=== PATIENT | female | born 2000 | race Caucasian/White ===

== ENCOUNTER 2024-06-19 02:58 | Emergency (ER) | payer BC, SELFPAY ==
--- NOTE | ~2024-06-19 | CT_ITS ---
CT of the Abdomen and Pelvis: Indication: Abdominal pain Technique: 2.5 mm axial scans were obtained through the abdomen and pelvis following intravenous adm inistration of 100 cc of Omnipaque 350. Dose reduction technique was used on this scan by utilizing a utomated exposure control and iterative reconstruction technique. The dose-length product (DLP) was 4 30.71 mGy-cm. Findings: Scans through the lung bases are unremarkable. The liver, spleen, pancreas, gallbladder, adrenals and left kidney are within normal limits. There is a 4 mm stone in the very proximal right ureter with mild right hydronephrosis. No evidence of aortic aneurysm. No lymphadenopathy. No bowel obstruction or bowel wall thickening. There is no evidence to suggest acute appendicitis. Images through the pelvis were performed. Urinary bladder unremarkable. 2 cm ovarian cyst present. No other pelvic mass seen. No ascites. Impression: 4 mm proximal right ureteral stone with mild right hydronephrosis. Reviewed, dictated and finalized at [facility]. [employer] Impression: 4 mm proximal right ureteral stone with mild right hydronephrosis.
[2024-06-19 03:04] VITALS: BP 140/90; PULSE 88; RESP 14; TEMP 36.6; O2SAT 100
[2024-06-19 03:17] LABS: Basophils Absolute Auto 0.1 K/mm3 (0.0-0.1); Basophils Percent Auto 1.8 % (0.2-1.2); Eosinophils Absolute Auto 0.2 K/mm3 (0-0.3); Eosinophils Percent Auto 3.4 % (0-4.4); Hematocrit 40.5 % (37.0-47.0); Hemoglobin 13.9 g/dL (12.0-15.0); Immature Granulocyte Absolute 0.01 K/mm3 (0.00-0.031); Immature Granulocyte Percent A 0.2 % (0-0.5); Lymphocytes Absolute Auto 2.77 K/mm3 (0.9-3.2); Lymphocytes Percent Auto 48.9 % (18.3-44.2); Mean Corpuscular HGB Conc 34.3 g/dl (32-36); Mean Corpuscular Hemoglobin 31.1 pg (26-34); Mean Corpuscular Volume 90.6 fl (80-100); Mean Platelet Volume 9.4 fl (7.4-10.4); Monocytes Absolute Auto 0.6 K/mm3 (0.1-0.6); Monocytes Percent Auto 10.6 % (2.6-8.5); Neutrophils Percent Auto 35.1 % (45.5-73.1); Platelet Count Result 250 k/mm3 (150-375); Red Blood Count 4.47 M/mm3 (4.2-5.4); Red Cell Distribution Width 12.5 % (11.5-14.5); White Blood Count 5.7 K/mm3 (4.5-10.0)
[2024-06-19 03:20] LABS: BEDSIDEPREGUCG Negative (Negative)
[2024-06-19 03:28] LABS: Alanine Aminotransferase 18 U/L (6-35); Albumin Level 4.5 g/dL (3.5-5.1); Alkaline Phosphatase 80 U/L (38-126); Anion Gap 8 mmol/L (4-12); Aspartate Amino Transferase 23 U/L (14-36); Bilirubin,Total 0.6 mg/dL (0.2-1.3); Blood Urea Nitrogen 8 mg/dL (7-17); Calcium 8.9 mg/dL (8.4-10.2); Carbon Dioxide 27 mmol/L (22-30); Chloride 103 mmol/L (98-107); Estimated CRCL calculation 78 ml/min; Estimated Glomerular Filt Rate > 60; Glucose 113 mg/dL (65-110); Lipase 108 U/L (23-300); Potassium 3.5 mmol/L (3.4-5.0); Sodium 138 mmol/L (137-145)
[2024-06-19 03:33] LABS: Bacteria Urine Rare /hpf; Non Pathogenic Casts 0-2; RBC Urine >100 /hpf (0-2); Squamous Epithelial Cell Urine Moderate /hpf (Few)
[2024-06-19 03:34] LABS: Add Urine Microscopic? YES; Appearance Urine Turbid (Clear); Bilirubin Urine Negative (Negative); Blood Urine 3+ (Negative); Color Urine Orange (Yellow); Glucose Urine UA Negative (Negative); Ketones Urine Negative (Negative); Leukocyte Esterase Ur 1+ LEU/UL (Negative); Nitrate Urine Negative (Negative); Protein Urine 2+ mg/dL (Negative); Specific Grav Ur 1.022 (1.001-1.035); pH Urine 5.5 (5.0-9.0)
--- NOTE | 2024-06-19 03:50 | ED.ABDPAIN ---
HPI - Abdominal Pain General Chief Complaint: Abdominal Pain Stated Complaint: right abd pain Time Seen by Provider: 06/19/24 03:23 History of Present Illness HPI narrative: 24-year-old female with no pertinent past medical history aside from celiac disease. She presents to the emergency room with sudden-onset pain right lower quadrant woke her from sleep 3 hours prior. Describes as a sharp stabbing pain that radiates to the back with intermittent nausea. Denies any diarrhea, constipation, vomiting. No history of similar events in the past. Only surgical history is a biopsy that diagnosed her celiac disease but no other surgeries. Was previously in her normal state of health. Denies any chest pain, shortness of breath, fever, chills, upper abdominal pain, weakness or fatigue. She is presently on her menstrual cycle but does not usually get pain like this. No history of kidney stones. Related Data Allergies Allergy/AdvReac Type Severity Reaction Status Date / Time No Known Allergies Allergy Verified 06/19/24 02:59 Review of Systems Review of Systems: As reviewed above in HPI Exam Narrative: GENERAL: Anxious in pain but not any acute distress, answering all my questions appropriate HEAD: [Normocephalic, atraumatic.] EYES: [PERRLA and EOMI.] ENT: Nares clear, no rhinorrhea or epistaxis. Mucous membranes moist. NECK: Supple. CHEST: [Clear to auscultation. No respiratory distress.] HEART: [Regular rate and rhythm]. No murmur heard. [Normal peripheral pulses.] ABDOMEN: [Soft, nondistended], tender to palpation the right lower quadrant focally, negative Herrera sign, positive psoas sign, [No rigidity or guarding] EXTREMITIES: Normal range of motion. [No edema.] SKIN: Warm, dry, no rash. NEURO: [No focal deficits]. Alert and oriented [x3.] PSYCH: [Normal mood and affect.] Course Vital Signs Vital signs: Vital Signs Temperature 36.6 C 06/19/24 03:04 Pulse Rate 88 06/19/24 03:04 Respiratory Rate 14 06/19/24 03:04 Blood Pressure 140/90 06/19/24 03:04 Pulse Oximetry 100 06/19/24 03:04 Oxygen Delivery Room Air 06/19/24 03:04 Temperature 36.6 C 06/19/24 03:04 Pulse Rate 84 06/19/24 05:21 Respiratory Rate 12 06/19/24 05:21 Blood Pressure 115/81 06/19/24 05:21 Pulse Oximetry 97 06/19/24 05:21 Oxygen Delivery Room Air 06/19/24 03:04 MDM - Abdominal Pain MDM Narrative Medical decision making narrative: 24-year-old female presenting with right lower quadrant pain that woke her from sleep. Radiates the back. She is presently on her menstrual cycle but denies any abnormal bleeding or vaginal discharge with her normal cycle. She is afebrile, normal vital signs of any tachycardia, blood pressure concerns or hypoxia. Examination does show a tender right lower quadrant with positive psoas sign. Negative Herrera sign or upper abdominal quadrant tenderness. Differential is broad but does include appendicitis, kidney stone, most likely gastroenteritis or inflammatory bowel. She denies any chance of her test is negative. Ovarian pathology such as a cyst or torsion less likely but also in the differential. CBC, CMP, lipase, urinalysis and test ordered. A CT scan with IV contrast was obtained. She was given Dilaudid, Zofran and re-evaluated for symptom control. Patient was re-evaluated in given additional pain medications with symptomatic improvement thereafter. CT scan shows a 4 mm kidney stone with mild hydronephrosis on the right side. No leukocytosis or anemia. No creatinine dysfunction. No evidence of urinary tract infection. I discussed this with the patient and given her symptomatic improvement and control pain and the size of the stone I believe he will be able to be passed on its own and she is stable for an outpatient evaluation by Urology and discharge home. Family member at bedside was agreeable to this plan of care and patient was also agreeable as her pain was much better. We did give her dose of Flomax and Toradol as well I will prescribe for additional medications for pain control and Flomax. She will be provided urology follow-up and patient's questions were answered. She was stable for discharge home at this time with return precautions. Medical Records Attestation: I reviewed the patient's medical records. Lab Data Attestation: I reviewed the patient's lab results. 06/19/24 03:11 06/19/24 03:11 Labs: Lab Results 06/19/24 06/19/24 06/19/24 Range/Units 03:11 03:17 03:18 WBC 5.7 (4.5-10.0) K/mm3 RBC 4.47 (4.2-5.4) M/mm3 Hgb 13.9 (12.0-15.0) g/dL Hct 40.5 (37.0-47.0) % MCV 90.6 (80-100) fl MCH 31.1 (26-34) pg MCHC 34.3 (32-36) g/dl RDW 12.5 (11.5-14.5) % Plt Count 250 (150-375) k/mm3 MPV 9.4 (7.4-10.4) fl Immature Gran % (Auto) 0.2 (0-0.5) % Neut % (Auto) 35.1 L (45.5-73.1) % Lymph % (Auto) 48.9 H (18.3-44.2) % [place] % (Auto) 10.6 H (2.6-8.5) % Eos % (Auto) 3.4 (0-4.4) % Baso % (Auto) 1.8 H (0.2-1.2) % Lymph # (Auto) 2.77 (0.9-3.2) K/mm3 [place] # (Auto) 0.6 (0.1-0.6) K/mm3 Eos # (Auto) 0.2 (0-0.3) K/mm3 Baso # (Auto) 0.1 (0.0-0.1) K/mm3 Abs Immat Gran (auto) 0.01 (0.00-0.031) K/mm3 Absolute Neuts (auto) 2.0 (1.3-6.7) K/mm3 Absolute Nucleated RBC 0.000 (0.0-0.012) K/mm3 Nucleated RBC % 0.0 (0.0-0.2) % Sodium 138 (137-145) mmol/L Potassium 3.5 (3.4-5.0) mmol/L Chloride 103 (98-107) mmol/L Carbon Dioxide 27 (22-30) mmol/L Anion Gap 8 (4-12) mmol/L BUN 8 (7-17) mg/dL Creatinine 1.00 (0.7-1.0) mg/dL Estim Creat Clear Calc 78 ml/min Estimated GFR > 60 (59 - ) Glucose 113 H (65-110) mg/dL Calcium 8.9 (8.4-10.2) mg/dL Total Bilirubin 0.6 (0.2-1.3) mg/dL AST 23 (14-36) U/L ALT 18 (6-35) U/L Alkaline Phosphatase 80 (38-126) U/L Total Protein 8.0 (6.3-8.2) g/dL Albumin 4.5 (3.5-5.1) g/dL Lipase 108 (23-300) U/L Urine Color [place] H (Yellow) Urine Appearance Turbid H (Clear) Urine pH 5.5 (5.0-9.0) Ur Specific [place] 1.022 (1.001-1.035) Urine Protein 2+ H (Negative) mg/dL Urine Glucose (UA) Negative (Negative) mg/dL Urine Ketones Negative (Negative) mg/dL Ur Blood (Man) 3+ H (Negative) Urine Nitrate Negative (Negative) Urine Bilirubin Negative (Negative) Urine Urobilinogen 1.0 (<2.0) mg/dL Leukocyte Esterase Rfl 1+ H (Negative) LUX/UL Urine RBC >100 H (0-2) /hpf Urine WBC 6-10 H (0-3) /hpf Ur Squamous Epith Cells Moderate (Few) /hpf Urine Bacteria Rare /hpf Urine Casts 0-2 POC Urine HCG, Qual Negative (Negative) Imaging Data Attestation: I personally reviewed and interpreted this imaging study as follows: My impression: Impressions Abdomen/Pelvis CT 06/19/24 05:40 Impression: 4 mm proximal right ureteral stone with mild right hydronephrosis. Radiologist's impression: ITS Impressions Abdomen/Pelvis CT 06/19/24 05:40 Impression: 4 mm proximal right ureteral stone with mild right hydronephrosis. Discharge Plan Discharge Clinical Impression: Kidney stone on right side Patient Disposition: Home, Self-Care Condition: Stable Instructions: Antibiotic Form, Kidney Stones (ED), How to Strain Your Urine (ED) Additional Instructions: You have a 4 mm right-sided kidney stone. We will prescribe the medications for pain control and to help pass the kidney stone at home. We will also provide Urology follow-up so he can call and make an appointment to see them outpatient. Return with any new or worsening concerns at any point such as return of pain is unbearable despite pain medications, intractable nausea or vomiting or difficulty urinating. Prescriptions: New tamsulosin [Flomax] 0.4 mg capsule 0.4 mg PO DAILY Qty: 20 0RF ibuprofen 600 mg tablet 600 mg PO TID PRN (Reason: pain) Qty: 20 0RF hydrocodone-acetaminophen 5-325 mg tablet 1 tablet PO Q6H PRN (Reason: pain) Qty: 12 0RF Follow-up/Referrals: PHYSICIAN,RETAIL MERCHANDISING MANAGER [Primary Care Provider] - Taran Smith MD [Physician] - 3 Days (Right-sided kidney stone) Time of Disposition: 06:44
[2024-06-19] MEDS: HYDROmorphone HCL INJ (*CRX) 1 MG/ML SYR 0.5 MG IV PUSH ×2 (03:57→04:40)
[2024-06-19] MEDS: ONDANSETRON INJ 4 MG/2 ML VIAL IV PUSH (03:57)
[2024-06-19 05:21] VITALS: BP 115/81; PULSE 84; RESP 12; O2SAT 97
[2024-06-19] MEDS: KETOROLAC 30 MG/ML VIAL (*BKC) IV PUSH (06:20)
[2024-06-19] MEDS: TAMSULOSIN HCL 0.4 MG CAPSULE PO (06:21)
[2024-06-19] MEDS: HYDROcodone/acetaminophen (*CRX) 5-325 MG TABLET 1 TAB PO (06:21)
== END 2024-06-19 07:08 | disposition home or self-care (01) ==
PROVIDERS: Emergency Provider Student in an Organized Health Care Education/Training Program
DX: N20.0 Calculus of kidney (principal); K90.0 Celiac disease
CPT/HCPCS: 36415; 74177; 80053; 81001; 81025; 83690; 85025; 87086; 96374; 96375; 96376; 99284; A9270; J1171; J1885; J2405; Q9967